=== PATIENT | female | born 1945 | race Caucasian/White ===

== ENCOUNTER 2018-12-23 12:50 | Emergency (ER) | payer MEDICARE ==
[~2018-12-23] VITALS: Ht 160 cm; Wt 63.5 kg
[~2018-12-23 12:50] MED LIST: ASPI-482 PO; GEMF600T8 PO; LEVO100T5 PO; LISI-338 PO; SIMV20TA3 PO
[2018-12-23 13:43] LABS: BASO # 0.1 x10^3/uL (0.0-0.2); BASO % 1 % (0-3); EOS % 0 % (0-3); HEMOGLOBIN 11.9 g/dL (12.0-15.5); LYMPH # 0.7 x10^3/uL (1.0-4.8); LYMPH % 8 % (24-48); MEAN CORPUSCULAR HEMOGLOBIN 29 pg (25-35); MEAN CORPUSCULAR HGB CONC 34 g/dL (31-37); MEAN CORPUSCULAR VOLUME 86 fL (79-100); MONO # 0.4 x10^3/uL (0.0-1.1); MONO % 5 % (0-9); NEUT # 6.7 x10^3uL (1.8-7.7); NEUT % 85 % (31-73); PLATELET COUNT 352 x10^3/uL (140-400); RED BLOOD COUNT 4.09 x10^6/uL (3.50-5.40); WHITE BLOOD COUNT 7.9 x10^3/uL (4.0-11.0)
[2018-12-23] MEDS ORDERED: fentaNYL PF VIAL 100 MCG/2 ML VIAL IV ONE (13:45)
[2018-12-23] MEDS ORDERED: ONDANSETRON PF 4 MG/2 ML VIAL. IV ONE (13:45)
--- NOTE | 2018-12-23 13:45 | PHYS DOC ---
Past Medical History Past Medical History: GERD, High Cholesterol, Hypertension, Hypothyroid, Other Additional Past Medical Histor: scoliosis Past Surgical History: Hysterectomy Alcohol Use: Occasionally Drug Use: None Adult General Chief Complaint Chief Complaint: Rib pain HPI HPI Patient is a 73 year old female who presents with complaining of rib pain. Patient complaining of gradual onset of left lower posterior chest wall pain as a constant pain that gradually getting worse. Patient complaining of increasing pain with movement and breathing. Patient complaining of shortness of breath be cause of the pain and denies fever and chills, injury, history of the same pain. Patient was seen by her chiropractor that was told she had inflammation of her leg and felt force after readjustment of her rib by her chiropractor. Patient rated her pain 10 over 10. Review of Systems Review of Systems Constitutional: Denies fever or chills [] Eyes: Denies change in visual acuity, redness, or eye pain [] HENT: Denies nasal congestion or sore throat [] Respiratory: Denies cough, reports shortness of breath [] Cardiovascular: No additional information not addressed in HPI [] GI: Denies abdominal pain, nausea, vomiting, bloody stools or diarrhea [] : Denies dysuria or hematuria [] Musculoskeletal: Denies back pain or joint pain [] Integument: Denies rash or skin lesions [] Neurologic: Denies headache, focal weakness or sensory changes [] Endocrine: Denies polyuria or polydipsia [] All other systems were reviewed and found to be within normal limits, except as documented in this note. Current Medications Current Medications Current Medications Medications (Trade) Dose Ordered Sig/[facility] Start Time Stop Time Status Last Admin Dose Admin Acetaminophen/ Hydrocodone Bitart (Lortab 5/325) 1 tab 1X ONCE 12/23/18 15:00 12/23/18 15:01 DC 12/23/18 15:20 1 TAB Cyclobenzaprine HCl (Flexeril) 10 mg 1X ONCE 12/23/18 15:00 12/23/18 15:01 DC 12/23/18 15:19 10 MG Fentanyl Citrate (Fentanyl 2ml Vial) 50 mcg 1X ONCE 12/23/18 13:45 12/23/18 13:46 DC 12/23/18 13:43 50 MCG Ondansetron HCl (Zofran) 4 mg 1X ONCE 12/23/18 13:45 12/23/18 13:46 DC 12/23/18 13:42 4 MG Allergies Allergies Allergies Coded Allergies Type Severity Reaction Last Updated Verified No Known Drug Allergies 04/26/15 No Physical Exam Physical Exam Constitutional: Well developed, well nourished, moderate distress, non-toxic appearance. [] HENT: Normocephalic, atraumatic, oropharynx moist. Eyes: PERRLA, EOMI, conjunctiva normal, no discharge. [] Neck: Normal range of motion, no tenderness, supple, no stridor. [] Cardiovascular:Heart rate regular rhythm, no murmur [] Lungs & Thorax: Bilateral breath sounds clear to auscultation, large lipoma in left upper posterior wall left, lower lateral chest wall tenderness [] Abdomen: Bowel sounds normal, soft, no tenderness, no masses, no pulsatile masses. [] Skin: Warm, dry, no erythema, no rash. [] Back: No tenderness, no CVA tenderness. [] Extremities: No tenderness, no cyanosis, no clubbing, ROM intact, no edema. [] Neurologic: Alert and oriented X 3, normal motor function, normal sensory function, no focal deficits noted. [] Psychologic: Affect normal, judgement normal, mood normal. [] Current Patient Data Vital Signs Vital Signs Date Time Temp Pulse Resp B/P (MAP) Pulse Ox O2 Delivery O2 Flow Rate FiO2 12/23/18 15:20 20 98 Room Air 12/23/18 14:05 2.0 12/23/18 12:55 98.2 72 142/68 (92) 98.2 Lab Values Laboratory Tests Test 12/23/18 13:35 White Blood Count 7.9 x10^3/uL (4.0-11.0) Red Blood Count 4.09 x10^6/uL (3.50-5.40) Hemoglobin 11.9 g/dL (12.0-15.5) L Hematocrit 35.0 % (36.0-47.0) L Mean Corpuscular Volume 86 fL (79-100) Mean Corpuscular Hemoglobin 29 pg (25-35) Mean Corpuscular Hemoglobin Concent 34 g/dL (31-37) Red Cell Distribution Width 14.0 % (11.5-14.5) Platelet Count 352 x10^3/uL (140-400) Neutrophils (%) (Auto) 85 % (31-73) H Lymphocytes (%) (Auto) 8 % (24-48) L Monocytes (%) (Auto) 5 % (0-9) Eosinophils (%) (Auto) 0 % (0-3) Basophils (%) (Auto) 1 % (0-3) Neutrophils # (Auto) 6.7 x10^3uL (1.8-7.7) Lymphocytes # (Auto) 0.7 x10^3/uL (1.0-4.8) L Monocytes # (Auto) 0.4 x10^3/uL (0.0-1.1) Eosinophils # (Auto) 0.0 x10^3/uL (0.0-0.7) Basophils # (Auto) 0.1 x10^3/uL (0.0-0.2) Platelet Estimate Pending Sodium Level 140 mmol/L (136-145) Potassium Level 3.9 mmol/L (3.5-5.1) Chloride Level 101 mmol/L (98-107) Carbon Dioxide Level 28 mmol/L (21-32) Anion Gap 11 (6-14) Blood Urea Nitrogen 27 mg/dL (7-20) H Creatinine 1.5 mg/dL (0.6-1.0) H Estimated GFR (Cockcroft-Gault) 33.9 BUN/Creatinine Ratio 18 (6-20) Glucose Level 127 mg/dL (70-99) H Calcium Level 9.9 mg/dL (8.5-10.1) Magnesium Level 2.3 mg/dL (1.8-2.4) Total Bilirubin 0.3 mg/dL (0.2-1.0) Aspartate Amino Transferase (AST) 28 U/L (15-37) Alanine Aminotransferase (ALT) 22 U/L (14-59) Alkaline Phosphatase 64 U/L (46-116) Creatine Kinase 125 U/L (26-192) Troponin I Quantitative < 0.017 ng/mL (0.000-0.055) NU-Svd-C-Type Natriuretic Peptide 331 pg/mL (0-124) H Total Protein 8.0 g/dL (6.4-8.2) Albumin 4.1 g/dL (3.4-5.0) Albumin/Globulin Ratio 1.1 (1.0-1.7) Lipase 227 U/L (73-393) Laboratory Tests 12/23/18 13:35 Laboratory Tests 12/23/18 13:35 EKG EKG KG interpreted by me. EKG at 1345 showed normal sinus rhythm at rate of 65, poor R-wave practicing anterolateral leads, no acute ST and T-wave abnormalities. Radiology/Procedures Radiology/Procedures Chest and rib X-ray interpreted by me and did not show acute finding. Course & Med Decision Making Course & Med Decision Making Pertinent Labs and Imaging studies reviewed. (See chart for details) Evaluation of patient in ER showed 73-year-old female patient with left posterior lower chest pain that got worse with chiropractor manipulation. Patient felt better with treatment with Zofran and fentanyl in ER. EKG, chest x- ray and labs was unremarkable except for mild elevation of BUN/creatinine. Plan discharge patient home to diagnose of musculoskeletal chest pain. Dragon Disclaimer Dragon Disclaimer This electronic medical record was generated, in whole or in part, using a voice recognition dictation system. Departure Departure Impression: Primary Impression: Chest wall pain Additional Impression: Renal insufficiency Disposition: HOME, SELF-CARE (at 1515) Condition: IMPROVED Referrals: LULU RILEY MD (PCP) Patient Instructions: Chest Wall Pain, Muscle Strain Additional Instructions: Drink plenty of liquids Follow-up with your primary care physician in 3-5 days Return to ER if not getting better Apply ice on the affected area Scripts Ondansetron Hcl (ZOFRAN) 4 Mg Tablet 1 TAB PO PRN Q6-8HRS for nausea, #12 TAB Prov: JAVED MORRELL MD 12/23/18 Hydrocodone/Apap 5-325 (NORCO 5-325 TABLET) 1 Each Tablet 1 TAB PO PRN Q6HRS PRN for PAIN, #14 TAB 0 Refills Prov: JAVED MORRELL MD 12/23/18 Cyclobenzaprine Hcl (CYCLOBENZAPRINE HCL) 10 Mg Tablet 1 TAB PO TID, #21 TAB Prov: JAVED MORRELL MD 12/23/18 Problem Qualifiers JAVED MORRELL MD Dec 23, 2018 13:45
[2018-12-23 14:01] LABS: CALCIUM 9.9 mg/dL (8.5-10.1); CREATININE 1.5 mg/dL (0.6-1.0); GFR 33.9; POTASSIUM 3.9 mmol/L (3.5-5.1)
[2018-12-23 14:06] LABS: ALBUMIN 4.1 g/dL (3.4-5.0); ALBUMIN/GLOBULIN RATIO 1.1 (1.0-1.7); MAGNESIUM 2.3 mg/dL (1.8-2.4); TOTAL BILIRUBIN 0.3 mg/dL (0.2-1.0)
[2018-12-23] MEDS ORDERED: CYCLOBENZAPRINE 10 MG TABLET. PO ONE (15:00)
[2018-12-23] MEDS ORDERED: HYDROcodone/APAP 5/325MG 1 TAB TABLET PO ONE (15:00)
[2018-12-23] MEDS ORDERED: ONDA4TAB7 PO (15:17)
[2018-12-23] MEDS ORDERED: CYCL10TA2 PO (15:17)
[2018-12-23] MEDS ORDERED: HYDR-3164 PO (15:17)
--- NOTE | 2018-12-23 15:22 | RAD ---
EXAM: RIBS LEFT AND PA CHEST. HISTORY: Left lower rib pain. COMPARISON: None. FINDINGS: There are no displaced left rib fractures. There are no confluent infiltrates. There is no pneumothorax or pleural effusion. 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 The heart is not enlarged given this projection. IMPRESSION: 1. No displaced left rib fractures. 2. Relative mesocardia. Correlate with older radiographs to confirm stability. Electronically signed by: Mragareth Mcghee MD (12/23/2018 3:16 PM) [facility]
--- NOTE | 2018-12-23 15:27 | EKG ---
[facility] [address] [place] [address] Test Date: 2018-12-23 Test Time: 13:45:40 Pat Name: PARIS CASILLAS Department: Room: Gender: F [employer]: : 1945 Requested By: JAVED MORRELL Order Number: [id number] Reading MD: Measurements Intervals Rachel Rate: 64 P: 43 IA: 174 QRS: 47 QRSD: 84 T: 91 QT: 422 QTc: 439 Interpretive Statements SINUS RHYTHM T ABNORMALITY IN HIGH LATERAL LEADS ABNORMAL ECG No previous ECG available for comparison
[2018-12-23 15:30] VITALS: BP 109/60
[2018-12-23 16:21] LABS: % BANDS 3 % (0-9); % LYMPHS 9 % (24-48); % MONOS 6 % (0-10); % SEGS 82 % (35-66); ANISOCYTOSIS SLIGHT; PLT ESTIMATE ADEQUATE (ADEQUATE); POLYCHROMASIA SLIGHT
== END 2018-12-23 15:38 | disposition home or self-care (01) ==
LOC: ER 12:50
DX: R07.81 Pleurodynia (principal); N28.9 Disorder of kidney and ureter, unspecified; R06.02 Shortness of breath; K21.9 Gastro-esophageal reflux disease without esophagitis; E78.00 Pure hypercholesterolemia, unspecified; I10 Essential (primary) hypertension; E03.9 Hypothyroidism, unspecified; Z90.710 Acquired absence of both cervix and uterus
CPT/HCPCS: 36415; 71101; 80053; 82550; 83690; 83735; 83880; 84484; 85007; 85025; 93005; 96374; 96375; 99285; J2405; J3010

== ENCOUNTER → 2019-01-15 | Outpatient (CLI) | payer MEDICARE, OTHER ==
[2018-12-23 15:30] VITALS: BP 109/60
[~2019-01-15] MED LIST changes: +CYCL10TA2 PO; +HYDR-3164 PO; +ONDA4TAB7 PO
--- NOTE | 2019-01-15 16:33 | KCIC ---
Examination: Ultrasound kidneys HISTORY: History of renal insufficiency, left upper quadrant pain COMPARISON: None available. The right kidney measures 11.7 x 4.8 x 4.2 cm. Mild prominent appearing right and left renal pelvis could be minimal hydronephrosis , left greater than right. The left kidney measures 11.8 x 4.5 x 4.8 cm. Urinary bladder is mildly distended. Incidental note of two hyperechogenicities identified in the right lobe of the liver measuring 2.2 cm and 1.5 cm. IMPRESSION: 1. Prominent appearing bilateral renal pelvis could be hydronephrosis. Cross-sectional imaging with CT can be considered. 2. Incidental note of two hyperechogenicities identified in the right lobe of the liver measuring 2.2 cm and 1.5 cm. Differential includes liver masses or hemangiomas. Electronically signed by: Car Aponte MD (01/15/2019 4:31 PM) [id number]
== END | disposition home or self-care (01) ==
LOC: KCIC US 15:40
PROVIDERS: ATTEND Family Medicine
DX: N32.89 Other specified disorders of bladder (principal); N28.9 Disorder of kidney and ureter, unspecified
CPT/HCPCS: 76770

== ENCOUNTER → 2019-01-24 | Outpatient (CLI) | payer MEDICARE, OTHER ==
[~2019-01-24] MED LIST changes: +IOHEXOL 240 MG/ML 50ML VIAL. PO ONE; +IOHEXOL 300 MG/ML 100ML VIAL. IV ONE
--- NOTE | 2019-01-24 11:50 | KCIC ---
Examination: CT ABD PELV W/ORAL IV CONTRAST History: Liver nodule, hydronephrosis on recent ultrasound exam Comparison/Correlation: 01/15/2019 bilateral renal ultrasound exam, MRI of the upper chest without contrast 04/26/2015 Findings: Axial images of the abdomen and pelvis were obtained following IV and oral contrast. Sagittal and coronal reformatted images were provided. Portal venous phase and 5 minute delayed hepatic venous phase images were acquired. Visualized lung bases are clear. Right hepatic lobe anterior segment lesion within segment 8 is present. Nodular thickening of contrast is noted. Retention of contrast is evident on the 5 minute delayed image. This lesion measures 1.6 cm diameter. More inferiorly within the right hepatic lobe posterior segment within segment 6, there is a 2.2 cm x 2 cm lesion with nodular filling in and retention of contrast on delayed phase images. These correspond to the findings on ultrasound exam. Subtle hyperdensity at the gallbladder neck which likely represents mucosal enhancement is evident. No biliary dilatation. Spleen, pancreas, and adrenal glands are normal. Bilateral parapelvic cysts are notable greater on the left. There is no hydronephrosis. Perfusion of the kidneys is symmetric. No suspicious filling defects involving the pyelocalyceal systems or proximal ureters. Right lower renal pole cyst measuring 0.8 cm diameter is present. Very small to characterize low-attenuation lesion involving the right renal interpolar region laterally measuring 1 cm x 0.5 cm x 0.7 cm longitudinal is present. Assessment for difference in enhancement is somewhat limited considering its small size. No extraluminal gas. No bowel obstruction. Diverticulosis is mild involving the distal sigmoid colon. Appendix is normal. Levo convexity of the low thoracic and lumbar spine noted. Sacralization of L5 noted. Impression: Hepatic hemangiomas. No suspicious hepatic lesion. No hydronephrosis. Bilateral parapelvic cyst. Indeterminate very small to characterize lesion involving the left renal interpolar region. This may represent a complex cyst or other benign process interval follow-up CT with contrast in 8 months is recommended to assess stability. PQRS Compliance Statement: One or more of the following individualized dose reduction techniques were utilized for this examination: 1. Automated exposure control 2. Adjustment of the mA and/or kV according to patient size 3. Use of iterative reconstruction technique Electronically signed by: Kingsley Alex MD (01/24/2019 11:47 AM) [facility]
== END | disposition home or self-care (01) ==
LOC: KCIC CT 07:57
PROVIDERS: ATTEND Family Medicine
DX: D18.09 Hemangioma of other sites (principal); N28.1 Cyst of kidney, acquired; K76.89 Other specified diseases of liver; N13.30 Unspecified hydronephrosis; N28.89 Other specified disorders of kidney and ureter; I10 Essential (primary) hypertension; E11.9 Type 2 diabetes mellitus without complications; F17.200 Nicotine dependence, unspecified, uncomplicated; Z95.0 Presence of cardiac pacemaker
CPT/HCPCS: 74177; Q9966; Q9967

== ENCOUNTER → 2019-02-28 | Outpatient (CLI) | payer MEDICARE, OTHER ==
[~2019-02-28] MED LIST changes: -IOHEXOL 240 MG/ML 50ML VIAL. PO ONE; -IOHEXOL 300 MG/ML 100ML VIAL. IV ONE
--- NOTE | 2019-02-28 10:48 | KCIC ---
LUMBAR SPINE WO CONTRAST History: Lumbar radiculopathy. Right side. Technique: Multiplanar, multi sequential MR imaging was performed of the lumbar spine. Comparison: None Findings: Rightward curvature of the lumbar spine. Straightening of normal lumbar lordosis. Otherwise, normal alignment. Normal vertebral body height. No fracture. Conus terminates at the normal location. No evidence of nerve root clumping. Prominent bilateral parapelvic renal cysts. Incidentally noted retroaortic left renal vein. T11-T12 right posterior disc protrusion contributing to mild cord flattening. No canal or neuroforaminal narrowing. T12-L1: No canal or neuroforaminal narrowing. L1-L2: Small posterior disc bulge. Mild facet arthropathy. No canal or neuroforaminal narrowing. L2-L3: Small posterior disc bulge. Moderate facet arthropathy. Mild right subarticular recess narrowing. No canal narrowing. Mild right neural foraminal narrowing. No left neural foraminal narrowing. L3-L4: Mild facet arthropathy. No canal or neuroforaminal narrowing. L4-L5: Small posterior disc bulge. Moderate facet arthropathy. No canal or neuroforaminal narrowing. L5-S1: Small posterior disc bulge. Moderate facet arthropathy. No canal narrowing. Mild left neural foraminal narrowing. Impression: 1. Multilevel thoracolumbar spondylosis with moderate lower lumbar facet arthropathy. 2. Mild neural foraminal narrowing right L2-L3 and left L5-S1. 3. Mild right L2-L3 subarticular recess narrowing. Electronically signed by: Ignacio Carvalho DO (02/28/2019 10:45 AM) [id number]
== END | disposition home or self-care (01) ==
LOC: KCIC MRI 09:49
PROVIDERS: ATTEND Family Medicine
DX: M47.26 Other spondylosis with radiculopathy, lumbar region (principal); M51.24 Other intervertebral disc displacement, thoracic region; M48.07 Spinal stenosis, lumbosacral region; M46.86 Other specified inflammatory spondylopathies, lumbar region; N20.0 Calculus of kidney
CPT/HCPCS: 72148

== ENCOUNTER → 2020-04-13 | Outpatient (CLI) | payer MEDICARE ==
[~2020-04-13] MED LIST changes: +SIMV20TA18 PO; -SIMV20TA3 PO
--- NOTE | 2020-04-13 12:21 | KCIC ---
MRI Thoracic Spine without contrast History: Thoracic radiculopathy, pain with lifting Technique: Multiplanar, multi sequential noncontrast MR imaging was performed of the thoracic spine. Comparison: Included portion of the thoracic spine 04/26/2015 MR chest exam Findings: Numbering is based on counting from above with assumption of 7 cervical and 12 thoracic vertebral bodies. There is transitional anatomy of the lumbar spine with sacralization of what is considered L5. At what is considered T9, there is now prominent edema of the vertebral body diffusely as signified by STIR hyperintense signal. There is mild generalized height loss without osseous retropulsion. There is some associated heterogeneous T1 and T2 hyperintense signal of the T9 vertebral body, also more rounded focus of T1 hypointense signal about 1.1 cm. There is also small focus of marrow edema of the right T9 lamina. There is also more amorphous appearing edema of the T5 vertebral body greater superiorly at which there is mild superior endplate concavity, no osseous retropulsion. There are small hemangiomas of T10 and T11 vertebral bodies. There is multilevel degenerative disc disease greatest T5-T6 through T10-11. Thoracic cord caliber is within normal limits without defined or expansile signal abnormality. There is [id number] levoscoliosis centered near T10-11. Levels with abnormalities include: T5-T6: There is shallow posterior protrusion slightly indenting the ventral thecal sac without significant spinal stenosis. T6-7: There is a very small posterior central protrusion without spinal stenosis. T7-8: There is negligible disc osteophyte complex in the left lateral recess, no spinal stenosis. T8-T9: Facet degenerative change contributes to mild posterior narrowing of the left neural foramen. T9-10: Facet degenerative change contributes to severe narrowing of the right neural foramen, moderate narrowing on the left. There is very shallow posterior protrusion slightly indenting the ventral thecal sac, spinal canal not significantly narrowed. T10-11: There is a shallow posterior protrusion slightly indents the ventral thecal sac greatest centrally and in the right lateral recess without significant spinal stenosis. Facet degenerative change contributes to moderate to severe posterior narrowing of the right neural foramen. T12-L1: There is facet degenerative change contributing to mild posterior narrowing of the right neural foramen. There is a T2 hyperintense lesion of the visualized right lobe of the liver about 2.1 cm transverse, seen on 2019 CT exam and likely a hemangioma. As seen on localizer, there is cervical degenerative disc disease greatest at C4-5 and C5-6, also multilevel bulges of the cervical spine C3-4 through C5-6 indenting the ventral thecal sac. Impression: 1. Counting is based on numbering from above as stated, transitional anatomy of the lumbar spine with sacralization of what is considered L5. There is prominent edema fairly diffusely of the T9 vertebral body with associated mild height loss, no osseous retropulsion. While findings could be due to more recent compression injury, round focus of signal change of the vertebral body is concerning for underlying marrow replacing lesion such as from metastatic disease or myeloma. There is also small focus of edema of the right T9 lamina. There is more amorphous appearing edema of the T5 vertebral body with mild superior height loss, appearance more suggestive of recent compression fracture. 2. There is no significant thoracic spinal stenosis, shallow posterior protrusions as stated. 3. Facet degenerative change contributes to multilevel thoracic neural foramina compromise, severe narrowing on the right at T9-T10 and T10-11. 4. There is multilevel thoracic degenerative disc disease. There is thoracolumbar levoscoliosis. 5. There is T2 hyperintense lesion of the right lobe of the liver corresponding with a likely hemangioma as seen on previous CT. Electronically signed by: Ricky Guevara MD (04/13/2020 12:18 PM) [place] [id number]
== END ==
LOC: KCIC MRI 09:10
PROVIDERS: ATTEND Family Medicine
DX: M51.14 Intervertebral disc disorders with radiculopathy, thoracic region (principal); M48.04 Spinal stenosis, thoracic region
CPT/HCPCS: 72146

== ENCOUNTER → 2020-04-23 | Outpatient (CLI) | payer MEDICARE ==
--- NOTE | 2020-04-23 16:16 | RAD ---
BONE SCAN 3 PHASE Clinical Indication: Reason: ABNORMAL MRI THORACIC, pain x10 months. Bilateral rib pain x6 months. Comparison: MR thoracic spine without contrast, April 13, 2020. MR lumbar spine without contrast February 28, 2019. CT abdomen and pelvis with contrast January 24, 2019. TECHNIQUE: Patient is injected with 25 mCi of technetium 99m MDP. Angiographic phase images of the lower chest and abdomen acquired. Anterior immediate static image then obtained. After delay, multiple projection static images of the chest and abdomen are obtained. Findings: Angiographic phase images are normal. On the immediate static image there is focal mild tracer uptake in the mid right hepatic lobe which may localize to a hemangioma as seen on prior CT. On the delay images there is increased tracer uptake localizing to the T5 vertebral body and the T9 and T10 vertebral bodies right and left lateral. There is increased tracer uptake of 4 right anterolateral ribs and a single left lateral rib. Tracer uptake in the sternum is heterogeneous. Increased tracer uptake bilaterally of the shoulders is likely degenerative. Tracer distribution in the soft tissues appears physiologic. IMPRESSION: 1. There is increased tracer uptake of the T5, T9, and T10 vertebral bodies. Acute compression fractures or metastatic disease are considerations. 2. Tracer uptake of bilateral ribs is in a pattern favored to be posttraumatic. Electronically signed by: Luis Carlos Ruffin MD (04/23/2020 4:13 PM) [id number]
== END | disposition home or self-care (01) ==
LOC: NM 09:03
PROVIDERS: ATTEND Family Medicine
DX: R93.7 Abnormal findings on diagnostic imaging of other parts of musculoskeletal system (principal); D18.09 Hemangioma of other sites
CPT/HCPCS: 78315; A9503

== ENCOUNTER 2020-05-14 08:25 | Outpatient (CLI) | payer MEDICARE ==
[2020-05-14] VITALS (7 sets, daily range): BP systolic 112–136; BP diastolic 62–84
[~2020-05-14] VITALS: Ht 160 cm; Wt 63.5 kg
[2020-05-14] MEDS ORDERED: TRIA1CAP3 PO (08:55)
[2020-05-14] MEDS ORDERED: LOSA100T14 PO (08:55)
[2020-05-14 09:05] LABS: BASO # 0.1 x10^3/uL (0.0-0.2); BASO % 1 % (0-3); EOS # 0.1 x10^3/uL (0.0-0.7); EOS % 1 % (0-3); HEMATOCRIT 35.7 % (36.0-47.0); LYMPH # 1.7 x10^3/uL (1.0-4.8); LYMPH % 32 % (24-48); MEAN CORPUSCULAR HEMOGLOBIN 29 pg (25-35); MEAN CORPUSCULAR HGB CONC 34 g/dL (31-37); MEAN CORPUSCULAR VOLUME 87 fL (79-100); MONO # 0.3 x10^3/uL (0.0-1.1); MONO % 6 % (0-9); NEUT % 59 % (31-73); PLATELET COUNT 335 x10^3/uL (140-400); RED BLOOD COUNT 4.11 x10^6/uL (3.50-5.40); RED CELL DISTRIBUTION WIDTH 14.6 % (11.5-14.5); WHITE BLOOD COUNT 5.1 x10^3/uL (4.0-11.0)
[2020-05-14 09:15] LABS: PROTHROMBIN TIME PATIENT 12.2 SEC (11.7-14.0)
[2020-05-14] MEDS ORDERED: fentaNYL PF VIAL 100 MCG/2 ML VIAL ONE (09:52)
[2020-05-14] MEDS ORDERED: ONDANSETRON PF 4 MG/2 ML VIAL. ONE ×2 (09:52→10:50)
[2020-05-14] MEDS ORDERED: MIDAZOLAM HCL/PF 2 MG/2 ML VIAL. ONE (09:52)
[2020-05-14] MEDS ORDERED: LIDOCAINE WITH 8.4% SOD BICARB 3 ML DISP.SYRIN. ONE (09:54)
[2020-05-14] MEDS ORDERED: LIDOCAINE WITH 8.4% SOD BICARB 3 ML DISP.SYRIN. IJ ONE (10:15)
[2020-05-14] MEDS ORDERED: fentaNYL PF VIAL 100 MCG/2 ML VIAL IV ONE (10:15)
[2020-05-14] MEDS ORDERED: MIDAZOLAM HCL/PF 2 MG/2 ML VIAL. IV ONE (10:15)
[2020-05-14] MEDS ORDERED: ONDANSETRON PF 4 MG/2 ML VIAL. IVP ONE ×2 (10:15→11:15)
--- NOTE | 2020-05-14 11:14 | RAD ---
05/14/2020 Fluoroscopically guided T9 vertebral body biopsy via transpedicular approach Indication:Lesion occupying nearly the entirety of the T9 vertebral body Fluoro time:5.4 minutes Dose area product: 14.64 Gycm2 Moderate sedation: The patient was appropriately monitored by a qualified independent observer throughout the course of the moderate sedation. [id number] sedation time:35 minutes Consent: The risks and benefits of the procedure were discussed with the patient. Informed consent was obtained. The patient was brought to the fluoroscopy suite and placed in the prone position. A timeout procedure was performed. Preprocedural antibiotics were administered. Procedure: The overlying skin was prepped and draped in the usual sterile fashion. All elements of maximal sterile barrier technique including the use of a cap, mask, sterile gown, sterile gloves, large sterile sheet, appropriate hand hygiene, and 2% chlorhexidine for cutaneous antisepsis (or acceptable alternative antiseptic per current guidelines) were followed for this procedure. Using a left transpedicular approach, and direct fluoroscopic guidance, a trocar needle was advanced to the posterior third of the targeted vertebral body. Biopsy samples were obtained and placed in formalin. The biopsy needle and guiding trocar were removed and manual pressure was held.. Sterile dressing was applied. Patient tolerated the procedure well, without apparent complication. Impression: Fluoroscopically guided biopsy of the T9 vertebral body
--- NOTE | 2020-05-14 12:30 | NUR ---
Discharge Note: PARIS CASILLAS Discharge instructions and discharge home medications reviewed with Family Member and a copy given. All questions have been answered and understanding verbalized. The following instructions and handouts were given: bone biopsy aftercare and adult moderate sedation Discontinued lines and drains: Peripheral IV intact. Patient discharged to Home or Self Care withFamily Membervia Wheelchair
== END 2020-05-14 12:30 | disposition home or self-care (01) ==
LOC: INTRAD 08:25
PROVIDERS: ATTEND Family Medicine
DX: R93.7 Abnormal findings on diagnostic imaging of other parts of musculoskeletal system (principal); I10 Essential (primary) hypertension; E11.9 Type 2 diabetes mellitus without complications; K21.9 Gastro-esophageal reflux disease without esophagitis; Z79.84 Long term (current) use of oral hypoglycemic drugs; Z79.01 Long term (current) use of anticoagulants; Z79.899 Other long term (current) drug therapy
CPT/HCPCS: 20225; 36415; 76942; 85025; 85610; 85730; 99152; 99153; J2250; J2405; J3010; J3490